=== PATIENT | male | born 1990 | race Caucasian/White ===

== ENCOUNTER 2016-07-22 19:17 | Emergency (ER) | payer OTHER ==
[~2016-07-22] VITALS: Ht 185.4 cm; Wt 88.0 kg
[2016-07-22 19:48] VITALS: BP 155/101; PULSE 96; RESP 20; O2SAT 100
--- NOTE | 2016-07-22 20:36 | ED.REPORT ---
HPI-Dental/Mouth Prob Date of Service Jul 22, 2016 ED Provider: Rico Nix DO Patient is a 26 year old male who presents to the ED complaining of tooth pain in one of his R lower molars onset 4 days ago. He was eating corn nuts 4 days ago and feels like he may have re-cracked his tooth. He denies any blood or pus drainage, numbness, fevers, or any other symptoms. Nursing Notes Stated Complaint: RIGHT BOTTOM TOOTH PAIN Chief Complaint: Dental Nursing Notes Reviewed: Yes Allergies: Coded Allergies: No Known Allergies (Unverified , 04/12/15) No Active Prescriptions or Reported Meds General Time Seen by MD: 20:07 Chief Complaint Tooth pain Hx Obtained From: Patient Arrived By: Walk-in Onset Occurred: 4 days ago Symptom Duration: Since onset Location: : Tooth lower R molar Quality: Painful Radiation: : Does not radiate Similar Sx Previous: Yes Past Medical History Past Medical History Healthy Past Surgical History denies Smoking History Current Every Day Smoker Social History Alcohol Use: Denies alcohol use Drug Use: Denies drug use 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 Neurologic: Denies: Numbness Physical Exam Initial Vital Signs Vital Signs (First) Date Time Temp Pulse Resp B/P Pulse Ox O2 Delivery O2 Flow Rate FiO2 07/22/16 19:48 37.4 96 20 155/101 100 Room Air Initial VS: Reviewed General/Constitutional: Well-developed, Well-nourished Head / Eyes: Atraumatic, Normocephalic Abdomen / GI: Soft, Non-tender Skin: Warm, Dry Neurologic: Alert, Oriented, Nonfocal Psychiatric: Mood/affect normal, Behavior normal, Normal thought content ENT: Airway patent, No pooling of secretions, No trismus Dental / Gums: Positive: Tooth fracture No edema of angle of mandible. Swelling and erythema of R, lower, 2nd molar. Cracked furthest R lower molar. No abscess. Neck: Supple, Full range of motion Respiratory / Chest: No respiratory distress, No stridor Procedures Dental Nerve Block Dental Nerve Block Note: Tooth was lanced and pus was released Time: 21:13 Block Performed by: ED physician Consent / Setup / Site Prep: Informed consent provided, Consent from patient , Time-out performed, Hand hygiene observed Anesthesia: Inferior alveolar block Local Anesthesia: Lidocaine 1% Post-Procedure / Complications: No complications, Condition improved, Tolerated procedure well, Patient stable Re-Eval/Medical Decision Med Decision/Clinical Course No stridor, trismus or drooling. No signs of deep space infection. There is no cellulitis or brawny edema of the floor the mouth. No signs of Tan angina. The abscess drained nicely. The swelling came down. At discharge he looked and felt much better. I will place him on a course of Augmentin and Percocet. Recommend close outpatient follow-up. I think he needs to see a dentist as soon as possible. Return if any problems or worsening symptoms. Routine opiate warnings given. Re-Evaluation/Progress : Time of Eval: 21:50 Re-Evaluation/Progress Note: Discussed plan for discharge. Patient understands and agrees with plan. All questions addressed at this time. Counseled Regarding: Diagnosis, Need for follow-up, When/why to return to ED Discharge & Departure Primary Impression: Periapical abscess Disposition: Home Discharge Condition All VS Reviewed: Yes Condition: Improved Patient Instructions: Dental Abscess (ED) Additional Instructions: Take Augmentin 2x daily for 7 days to treat your dental infection. Take Percocet , 1-2 every 6 hours, for pain. Do not drive, drink alcohol, or take acetaminophen while taking Percocet. Call your dentist tomorrow morning to schedule a follow up appointment immediately. If you experience any more facial swelling, pain, or develop a fever, return to the emergency department. Referrals: [facility] Scribe Attestation Portions of this note were transcribed by Anahi Em. I, Dr. Nix personally performed the history, physical exam and medical decision-making; I reviewed and confirmed the accuracy of the information in the transcribed note. Signed by: Anahi Em 07/22/16, [id number] copies to: [facility] Rico Nix DO Jul 22, 2016 20:36 ANAHI EM Jul 22, 2016 20:43
[2016-07-22] MEDS ORDERED: Ampicillin-Sulbactam Inj 3,000 MG in 0.9% Sodium Chloride 100 ML IV ONE (20:45)
[2016-07-22] MEDS ORDERED: Lidocaine 2% 50 mL Inj NERVEBLOCK ONE (20:45)
[2016-07-22] MEDS ORDERED: Dexamethasone Inj 20 MG in 0.9% Sodium Chloride-Pha MIX 50 ML IV ONE (20:45)
[2016-07-22] MEDS ORDERED: oxyCODONE-Acetamin 5-325 mg Tablet PO ONE (21:15)
[2016-07-22] MEDS ORDERED: _oxyCODONE/APAP 5-325 mg Tablet PO PRN (21:40)
[2016-07-22] MEDS ORDERED: HYDROmorphone 1 mg/mL Inj IVPUSH ONE (22:10)
[2016-07-22 22:25] VITALS: BP 134/86; PULSE 71; RESP 20; O2SAT 96
[2016-07-23] MEDS ORDERED: Sodium Chloride LOK Flush 10 mL Syringe IVFLUSH SCH (00:30)
== END 2016-07-22 22:28 | disposition home or self-care (01) ==
LOC: SED 19:17
DX: K04.7 Periapical abscess without sinus (principal); F17.200 Nicotine dependence, unspecified, uncomplicated
CPT/HCPCS: 41800; 96365; 96375; 99284; J0295; J1100; J1170